=== PATIENT | female | born 1970 | race Caucasian/White ===

== ENCOUNTER → 2024-03-27 | Day surgery (SDC) | payer BC ==
[2024-03-26 09:34] LABS: BASOPHILS # (AUTO) 0.1 (0.0-0.1); BASOPHILS % 0.8 % (0.0-1.0); EOSINOPHILS # (AUTO) 0.5 (0.0-0.4); EOSINOPHILS % 5.6 % (0.0-6.0); HEMATOCRIT 45.4 % (34.2-44.1); HEMOGLOBIN 14.8 g/dL (12.0-16.0); LYMPHOCYTES # (AUTO) 2.4 (1.0-3.2); MEAN CORPUSCULAR HEMOGLOBIN 33.2 pg (28-32); MEAN CORPUSCULAR HGB CONC 32.6 g/dL (31-35); MEAN CORPUSCULAR VOLUME 101.8 fL (81-99); MONOCYTES # (AUTO) 0.6 (0.2-0.8); MONOCYTES % 5.9 % (4.4-11.3); NEUTROPHILS % 62.2 % (38.7-80.0); PLATELET COUNT 204 x10e3/uL (140-360); RED BLOOD COUNT 4.46 x10e6/uL (3.6-5.1); WHITE BLOOD COUNT 9.67 x10e3/uL (4.8-10.8)
[~2024-03-27] MED LIST: ACETAMINOPHEN 1000 MG/100 ML 100 ML IV ONE; ACETAMINOPHEN 1000 MG/100 ML IV ONE; BUPIVACAINE 0.25% 30ML SDV ONE; EPINEPHRINE HCL 1:1000 1ML 1 MG/ML AMP ONE; FARXIGA5 MG; LEVOTHYROXINE100 MC1 PO; LIDOCAINE HCL 2% LOCAL INJ 5 ML SDV VIAL INJ ONE; LOSARTAN POTASS25 MG PO; METOCLOPRAMIDE HCL 10 MG/2ML VIAL ONE; MIDAZOLAM HCL 2 MG/2 ML VIAL ONE; MULTI-VITAMIN1 EACH PO; ONDANSETRON HCL INJ 2MG/ML 2ML 2 MG/ML VIAL ONE; PROPOFOL IV EMULSION 10 MG/ML 20 ML VIAL ONE; SEVOFLURANE INHAL SOLN 250 ML PEN BTL ONE; VITAMIN D250 MCG; [UNRECOGNIZED DRUG - OTHER]
[2024-03-27] MEDS: LACTATED RINGER'S 1,000 ML ONE (11:05)
[2024-03-27 14:44] VITALS: BP 132/87; PULSE 84; RESP 17; O2SAT 93
== END | disposition home or self-care (01) ==
LOC: OR 10:20
PROVIDERS: ATTEND Podiatrist Foot & Ankle Surgery
DX: M25.871 Other specified joint disorders, right ankle and foot (principal); M77.8 Other enthesopathies, not elsewhere classified; I10 Essential (primary) hypertension; E11.9 Type 2 diabetes mellitus without complications; E03.9 Hypothyroidism, unspecified; E66.01 Morbid (severe) obesity due to excess calories; F32.A Depression, unspecified; Z01.810 Encounter for preprocedural cardiovascular examination; Z01.812 Encounter for preprocedural laboratory examination; Z79.84 Long term (current) use of oral hypoglycemic drugs; Z79.85 Long-term (current) use of injectable non-insulin antidiabetic drugs; Z79.899 Other long term (current) drug therapy
CPT/HCPCS: 29897; 36415; 81025; 85025; 93005; C1762; J0131; J0171; J2003; J2250; J2405; J2704; J2765; J7121

== ENCOUNTER → 2025-03-03 | Day surgery (SDC) | payer BC ==
[2025-02-16 12:49] LABS: EST GLOMERULAR FILTRATION RATE 102 ML/MIN (>=60)
[~2025-03-03] MED LIST changes: -ACETAMINOPHEN 1000 MG/100 ML 100 ML IV ONE; -ACETAMINOPHEN 1000 MG/100 ML IV ONE; +ALBUTEROL 90 MCG/ACT INHALER INH ONE; -BUPIVACAINE 0.25% 30ML SDV ONE; +BUPIVACAINE LIPOSOME/PF 266 MG/20 ML IJ ONE; +CEFAZOLIN SODIUM 2 GM ONE; +DEXAMETHASONE SOD PHOS INJ 4 MG/ML SDV ONE; -EPINEPHRINE HCL 1:1000 1ML 1 MG/ML AMP ONE; +FENTANYL CITRATE/PF 100MCG/2 ML INJ ONE; +JARDIANCE10 MG PO; +LACTATED RINGER'S 1,000 ML ONE; -METOCLOPRAMIDE HCL 10 MG/2ML VIAL ONE
[2025-03-03 14:52] VITALS: PULSE 78; O2SAT 96
[2025-03-03] MEDS: ALBUTEROL/IPRATROPIUM 3 ML NEB ONE (15:22)
[2025-03-03 16:15] VITALS: BP 146/87; PULSE 91; RESP 18; O2SAT 93
== END | disposition home or self-care (01) ==
LOC: OR 10:00
PROVIDERS: ATTEND Podiatrist Foot & Ankle Surgery
DX: M19.272 Secondary osteoarthritis, left ankle and foot (principal); M77.52 Other enthesopathy of left foot and ankle; M72.2 Plantar fascial fibromatosis; M77.32 Calcaneal spur, left foot; M25.872 Other specified joint disorders, left ankle and foot; I10 Essential (primary) hypertension; E66.01 Morbid (severe) obesity due to excess calories; F32.A Depression, unspecified; F17.210 Nicotine dependence, cigarettes, uncomplicated; Z01.810 Encounter for preprocedural cardiovascular examination; Z01.812 Encounter for preprocedural laboratory examination; Z79.84 Long term (current) use of oral hypoglycemic drugs; Z79.85 Long-term (current) use of injectable non-insulin antidiabetic drugs; Z79.899 Other long term (current) drug therapy
CPT/HCPCS: 28119; 28740; 29897; 36415 ×2; 71045; 80048; 82948; 93005; 94660; 94799; C1713; C1734; J1100; J2003; J2250; J2405; J2704; J3010; J7121; J0666